=== PATIENT | female | born 1955 | race Caucasian/White ===

== ENCOUNTER 2019-05-19 10:19 | Observation (INO) | payer OTHER ==
[2019-05-19 11:04] LABS: ANION GAP 16.8 mmol/L (5-15); CHLORIDE,CL 99 mmol/L (98-115); SODIUM,NA 138 mmol/L (136-145)
[2019-05-19] MEDS ORDERED: Sodium Chloride 0.9% 10 ML Syringe FLUSH PRN (11:48)
[2019-05-19] MEDS ORDERED: Sodium Chloride 0.9% 1,000 ML IV SCH (12:00)
[2019-05-19] MEDS ORDERED: Ondansetron 4 MG/2 ML SDV IVPUSH PRN (12:00)
[2019-05-19] MEDS: Sodium Chloride 0.9% 1,000 ML IV SCH ×2 (13:08→20:02)
[2019-05-19] MEDS: Oseltamivir 75 MG Cap PO SCH ×2 (13:35→20:32)
[2019-05-19] MEDS ORDERED: Acetaminophen 325 MG Tab PO PRN (15:49)
[2019-05-19] MEDS ORDERED: Cyclobenzaprine 5 MG Tab PO PRN (15:54)
[2019-05-19] MEDS ORDERED: ESTROGENS CONJUGATED TOP SCH (16:00)
[2019-05-19] MEDS ORDERED: Ibuprofen 200 MG Tab PO PRN (16:12)
[2019-05-19] MEDS ORDERED: Loratadine 10 MG Tab PO PRN (16:30)
[2019-05-19] MEDS: Docusate Sodium 100 MG Cap PO SCH (16:57)
[2019-05-19] MEDS: Gabapentin 300 MG Cap PO SCH ×2 (17:12→20:31)
[2019-05-19] MEDS ORDERED: Simvastatin 20 MG Tab PO SCH (21:00)
[2019-05-19] MEDS ORDERED: Melatonin 3 MG Tab PO SCH (21:00)
[2019-05-19] MEDS ORDERED: Gabapentin 300 MG Cap PO SCH (21:00)
[2019-05-19] MEDS ORDERED: Docusate Sodium 100 MG Cap PO SCH (21:00)
[2019-05-19] MEDS ORDERED: Psyllium Husk Powder Sugar Free 5.85 GM Packet PO SCH (21:00)
[2019-05-19] MEDS: Clobetasol 0.05% Crm 30 GM Tube TOP SCH (23:13)
[2019-05-19] MEDS ORDERED: EYE OP ONE (23:15)
[2019-05-19] MEDS ORDERED: SYSTANE OP ONE (23:15)
[2019-05-20] MEDS: Sodium Chloride 0.9% 1,000 ML IV SCH ×2 (02:46→10:57)
[2019-05-20 06:23] VITALS: BP 121/57; PULSE 53
[2019-05-20] MEDS: Gabapentin 300 MG Cap PO SCH ×2 (07:49→12:46)
[2019-05-20] MEDS: Docusate Sodium 100 MG Cap PO SCH ×2 (07:49→12:46)
[2019-05-20] MEDS ORDERED: EYE OP SCH (09:00)
[2019-05-20] MEDS ORDERED: Multivitamins with Minerals/Iron/Folic Acid/Lycopene Tab PO SCH (09:00)
[2019-05-20] MEDS ORDERED: Cholecalciferol (Vitamin D3) 25 MCG Tab PO SCH (09:00)
[2019-05-20] MEDS ORDERED: SYSTANE OP SCH (09:00)
[2019-05-20] MEDS ORDERED: Sertraline 50 MG Tab PO SCH (09:00)
[2019-05-20] MEDS: Oseltamivir 75 MG Cap PO SCH (09:21)
[2019-05-20] MEDS: Clobetasol 0.05% Crm 30 GM Tube TOP SCH (09:25)
--- NOTE | 2019-05-20 10:25 | PCM.DCSUM1 ---
Discharge Summary - Hospital Course Free Text/Narrative:: Admission Date: 05/19/2019 Discharge Date: 05/20/2019 Admission Diagnoses: Influenza A Weakness secondary to above Dehydration secondary to above Discharge Diagnoses: Influenza A, treated with Tamiflu Weakness, improving Dehydration, improving with IVF's able to take PO Secondary, Chronic diagnoses: Fibromyalgia Depression Hyperlipidemia Peripheral neuropathy Occasional insomnia Atrophic vaginitis Disposition: Home, self care CODE STATUS: Full Code New meds at discharge: Tamiflu 75 mg PO BID to complete 5 day course Linsey is being discharged today from an observation stay for weakness and dehydration secondary to influenza. She was initially seen in the clinic on 01/2020 with a one month history of cough and weakness that would "come and go" . She was afebrile. When she would be sick it would las 2-3 days and then resolve completely. No N/V/D. She had a cough that she felt was "deep in her chest" and she was frustrated with the waxing and waning nature of this and so presented for evaluation. She was afebrile in clinic with normal vital signs, she was not ill appearing. She was treated with a Z-pack and instructed to follow-up if worsening. She was seen in clinic on 05/19/2019 with significant weakness, inability to eat or drink due to weakness and lack of motivation to get due to this overwhelming fatigue. She notes she had a temp of 101.7 on . Her had similar symptoms but was improving. In clinic she was tested for influenza and was positive for influenza A. She was admitted due to this and it's associated weakness and dehydration. Labs were all stable, slightly low WBC which is chronic for her. She was given 1L IVF bolus followed by NS at 100 cc per hour. She was started on Tamiflu 75 mg PO BID to complete a 5 day course. Overnight she has been able to ambulate independently to the bathroom and has been tolerating PO intake of food and fluids. She was not sleeping well last night due the noise of the IV pump running. She feels overall improved and is ready to go home. She will be discharged to home. Follow-in clinic as regularly scheduled. Follow-up sooner if no improvement in symptoms. Diagnosis: Stroke: No Modified Travis Scale: No Signif.Disability Despite Sympt.Able to Carry Out Usual Act./Duties Modified Winthrop Scale Score: 1 - Discharge Data Discharge Date: 05/20/19 Discharge Disposition: Home, Self-Care 01 Condition: Good - Referral to Home Health Primary Care Physician: Shyanne Bowling PA-C - Patient Instructions Diet: Regular Diet as Tolerated Activity: Rest and Relax Today - Discharge Plan *PRESCRIPTION DRUG MONITORING PROGRAM REVIEWED*: Not Applicable *COPY OF PRESCRIPTION DRUG MONITORING REPORT IN PATIENT SHAHRZAD: Not Applicable Prescriptions/Med Rec: Oseltamivir [Tamiflu] 75 mg PO BID 5 Days cap Home Medications: Home Meds Gabapentin 600 mg PO QID 06/26/13 [History] Multivitamin [Multi-Vitamin Daily] 1 tab PO DAILY 06/26/13 [History] Sertraline HCl 100 mg PO QAM 06/26/13 [History] Simvastatin 20 mg PO Q2D 06/26/13 [History] Cholecalciferol (Vitamin D3) [Vitamin D3] 2,000 unit PO QAM 05/19/19 [History] Clobetasol [Clobetasol 0.05%] 30 gm TOP BID 05/19/19 [History] Cyclobenzaprine HCl 2.5 mg PO TID PRN 05/19/19 [History] Docusate Sodium [Colace] 100 mg PO TID 05/19/19 [History] Estrogens, Conjugated [Premarin Vaginal Crm] 1 applic TOP ASDIRECTED 05/19/19 [ History] Gabapentin [Neurontin] 300 mg PO BEDTIME 05/19/19 [History] Ibuprofen [Advil] 200 mg PO Q6H PRN 05/19/19 [History] Loratadine [Claritin] 10 mg PO DAILY PRN 05/19/19 [History] Melatonin 10 mg PO BEDTIME 05/19/19 [History] Naproxen Sodium [Aleve] 220 mg PO BID PRN 05/19/19 [History] Polyethylene Glycol 3350 [Miralax] 17 gm PO Q2D 05/19/19 [History] Propylene Glycol/PEG 400/Pf [Systane 0.3-0.4% Eye Drop] 1 each OP DAILY [History] Psyllium Husk/Aspartame [Metamucil Sugar Free] 1 packet PO Q2D 05/19/19 [History ] Oseltamivir [Tamiflu] 75 mg PO BID 5 Days cap 05/20/19 [Rx] - Discharge Summary/Plan Comment DC Time >30 min.: No - General Info Date of Service: 05/20/19 Admission Dx/Problem (Free Text: Influenza A Dehydration Weakness - Patient Data Vitals - Most Recent: Last Vital Signs Temp 97.1 F 05/20/19 06:22 Pulse 53 L 05/20/19 06:22 Resp 18 05/20/19 06:22 BP 121/57 L 05/20/19 06:22 Pulse Ox 93 L 05/20/19 06:22 Weight - Most Recent: 154 lb 12.8 oz I&O - Last 24 hours: Intake & Output 05/19/19 05/20/19 05/20/19 22:59 06:59 14:59 Intake Total 700 4484 Output Total 1900 2700 Balance -1200 1784 Lab Results - Last 24 hrs: Laboratory Results - last 24 hr 05/19/19 05/19/19 Range/Units 10:38 10:38 WBC 3.45 L (5.00-10.00) 10^3/uL RBC 4.88 (3.80-5.50) 10^6/uL Hgb 14.7 (12.0-16.0) g/dL Hct 43.9 (37.0-47.0) % MCV 90.0 (82.0-92.0) fL MCH 30.1 (27.0-31.0) pg MCHC 33.5 (32.0-36.0) g/dL RDW 12.4 (11.5-14.5) % Plt Count 198 (150-400) 10^3/uL MPV 9.2 (7.4-10.4) fL Immature Gran % (Auto) 0.0 (0.0-5.0) % Neut % (Auto) 54.5 (50.0-70.0) % Lymph % (Auto) 37.1 (20.0-40.0) % Calvert % (Auto) 6.4 (2.0-8.0) % Eos % (Auto) 1.7 (1.0-3.0) % Baso % (Auto) 0.3 (0.0-1.0) % Immature Gran # (Auto) 0.00 (0.00-0.50) 10^3/uL Neut # (Auto) 1.88 L (2.50-7.00) 10^3/uL Lymph # (Auto) 1.28 (1.00-4.00) 10^3/uL Calvert # (Auto) 0.22 (0.10-0.80) 10^3/uL Eos # (Auto) 0.06 L (0.10-0.30) 10^3/uL Baso # (Auto) 0.01 (0.00-0.10) 10^3/uL Sodium 138 (136-145) mmol/L Potassium 4.2 (3.3-5.3) mmol/L Chloride 99 (98-115) mmol/L Carbon Dioxide 26.4 (21.0-32.0) mmol/L Anion Gap 16.8 H (5-15) mmol/L BUN 15 (6-25) mg/dL Creatinine 0.71 (0.51-1.17) mg/dL Est Cr Clr Drug Dosing TNP Estimated GFR (MDRD) > 60 mL/min Glucose 95 (75 - 99) mg/dL Calcium 8.9 (8.7-10.3) mg/dL Total Bilirubin 0.3 (0.2-1.0) mg/dL AST 36 (15-37) U/L ALT 43 (12-78) U/L Alkaline Phosphatase 100 (46-116) IU/L Total Protein 7.1 (6.4-8.2) g/dL Albumin 3.98 (3.00-4.80) g/dL ELVIS Results - Last 24 hrs: Microbiology 05/19/19 10:19 Influenza Type A Antigen Screen - Final Nasopharyngeal Swab Positive Influenza A Ag Influenza Type B Antigen Screen - Final NEGATIVE INFLUENZA B VIRUS AG REFERENCE RANGE: NEGATIVE Med Orders - Current: Current Medications Acetaminophen (Tylenol) 650 mg PO Q6H PRN PRN Reason: 650 Cholecalciferol (Vitamin D3) 50 mcg PO DAILY [facility] Last Admin: 05/20/19 09:22 Dose: 50 mcg Clobetasol Propionate (Clobetasol 0.05%) 0 gm TOP BID [facility] Last Admin: 05/20/19 09:25 Dose: Not Given Cyclobenzaprine HCl (Flexeril) 2.5 mg PO TID PRN PRN Reason: muscle spasms Last Admin: 05/19/19 19:22 Dose: 2.5 mg Docusate Sodium (Colace) 100 mg PO TID@0730,1200,1600 [facility] Last Admin: 05/20/19 07:49 Dose: 100 mg Gabapentin (Neurontin) 600 mg PO BID@0730,1200 [facility] Last Admin: 05/20/19 07:49 Dose: 600 mg Gabapentin (Neurontin) 300 mg PO BEDTIME [facility] Last Admin: 05/19/19 20:32 Dose: 300 mg Gabapentin (Neurontin) 600 mg PO BID@1630,2100 [facility] Last Admin: 05/19/19 20:31 Dose: 600 mg Sodium Chloride (Normal Saline) 1,000 mls @ 999 mls/hr IV .BOLUS [facility] Last Admin: 05/19/19 12:03 Dose: 999 mls/hr Sodium Chloride (Normal Saline) 1,000 mls @ 150 mls/hr IV ASDIRECTED [facility] Last Admin: 05/20/19 02:46 Dose: 150 mls/hr Ibuprofen (Motrin) 200 mg PO Q6H PRN PRN Reason: PAIN Loratadine (Claritin) 10 mg PO DAILY PRN PRN Reason: ALLERGIES Melatonin (Melatonin) 9 mg PO BEDTIME [facility] Last Admin: 05/19/19 20:32 Dose: 9 mg Multivitamins/Minerals (Centrum) 1 tab PO DAILY [facility] Last Admin: 05/20/19 09:26 Dose: 1 tab Naproxen (Naproxen Sodium) 220 mg PO BID PRN PRN Reason: Pain Systane 0.3-0.4% Eye (Drops Own Med) 0 each OP DAILY [facility] Last Admin: 05/20/19 09:24 Dose: 1 each Ondansetron HCl (Zofran) 4 mg IVPUSH Q4H PRN PRN Reason: Nausea/Vomiting Oseltamivir Phosphate (Tamiflu) 75 mg PO BID [facility] Stop: 05/23/19 22:30 Last Admin: 05/20/19 09:21 Dose: 75 mg Polyethylene Glycol (Miralax) 17 gm PO Q2D@2100 [facility] Psyllium Husk (Metamucil Sugar Free) 1 pkt PO Q2D@2100 [facility] Last Admin: 05/19/19 20:31 Dose: 1 pkt Sertraline HCl (Zoloft) 100 mg PO QAM [facility] Last Admin: 05/20/19 09:21 Dose: 100 mg Simvastatin (Zocor) 20 mg PO Q2D@2100 [facility] Last Admin: 05/19/19 20:32 Dose: 20 mg Sodium Chloride (Saline Flush) 10 ml FLUSH Q8HR PRN PRN Reason: keep vein open Discontinued Medications Docusate Sodium (Colace) 100 mg PO TID [facility] Non-Formulary Medication (Estrogens, Conjugated) 1 applic TOP ASDIRECTED [facility] Systane 0.3-0.4% Eye (Drops Own Med) 0 each OP ONETIME ONE Stop: 05/19/19 23:16 Last Admin: 05/20/19 00:06 Dose: 1 each - Exam General: Reports: Alert, Oriented, Cooperative, No Acute Distress Lungs: Reports: Clear to Auscultation, Normal Respiratory Effort Cardiovascular: Reports: Regular Rate, Regular Rhythm, No Murmurs
[2019-05-20] MEDS ORDERED: Polyethylene Glycol 3350 Powder 17 GM Packet PO SCH (21:00)
== END 2019-05-20 13:00 | disposition home or self-care (01) ==
LOC: KA.OC 10:19 → KA.MS 11:25
DX: J10.1 Influenza due to other identified influenza virus with other respiratory manifestations (principal); E86.0 Dehydration; E78.5 Hyperlipidemia, unspecified; F32.9 Major depressive disorder, single episode, unspecified; G62.9 Polyneuropathy, unspecified; M79.7 Fibromyalgia; N95.2 Postmenopausal atrophic vaginitis; F41.9 Anxiety disorder, unspecified; G47.00 Insomnia, unspecified; K59.09 Other constipation; E78.00 Pure hypercholesterolemia, unspecified; Z79.899 Other long term (current) drug therapy; Z88.1 Allergy status to other antibiotic agents; Z91.048 Other nonmedicinal substance allergy status; Z88.8 Allergy status to other drugs, medicaments and biological substances
CPT/HCPCS: 36415; 80053; 85025; 87804; 96360; 96361; A9270-GY; G0378; J7030; J7040

== ENCOUNTER 2019-12-19 07:48 | Day surgery (SDC) | payer MEDICARE, BC ==
[2019-12-19] MEDS ORDERED: Midazolam 1 MG/ML 2 ML SDV IV ONE (07:49)
[2019-12-19] MEDS ORDERED: Propofol 200 MG/20 ML SDV IV ONE (07:49)
[2019-12-19] MEDS ORDERED: Lactated Ringers 1,000 ML IV SCH (08:00)
[2019-12-19] MEDS ORDERED: Sodium Chloride 0.9% 10 ML Syringe FLUSH PRN (08:00)
[2019-12-19] MEDS ORDERED: Propofol 200 MG/20 ML SDV ONE ×2 (08:08→08:46)
[2019-12-19] MEDS ORDERED: Midazolam 1 MG/ML 2 ML SDV ONE (08:08)
--- NOTE | 2019-12-19 09:15 | PCM.PN ---
- General Info Date of Service: 12/19/19 - Review of Systems Systems Review Comment:: 64-year-old female with history of recent removal of large polyp here for follow-up colonoscopy. Patient does require medication assistance for regular bowel movements but notes no recent bleeding or major change in bowel function. She is medically stable to proceed today. Her recent history and physical is reviewed and no significant changes are noted. She agrees to proceed excepting risks. - Patient Data Vitals - Most Recent: Last Vital Signs Temp 96.9 F 12/19/19 08:01 Pulse 76 12/19/19 08:01 Resp 16 12/19/19 08:01 BP 154/78 H 12/19/19 08:01 Pulse Ox 96 12/19/19 08:01 Weight - Most Recent: 69.4 kg Med Orders - Current: Current Medications Lactated Ringer's (Ringers, Lactated) 1,000 mls @ 30 mls/hr IV ASDIRECTED [facility] Last Admin: 12/19/19 08:12 Dose: 30 mls/hr Documented by: Sodium Chloride (Saline Flush) 10 ml FLUSH Q8HR PRN PRN Reason: keep vein open Discontinued Medications Midazolam HCl (Versed 1 Mg/Ml) Confirm Administered Dose 2 mg .ROUTE .STK-MED ONE Stop: 12/19/19 08:09 Propofol (Diprivan 20 Ml) Confirm Administered Dose 400 mg .ROUTE .STK-MED ONE Stop: 12/19/19 08:09 Sepsis Event Note - Focused Exam Vital Signs: Vital Signs Temp Pulse Resp BP Pulse Ox 12/19/19 08:01 96.9 F 76 16 154/78 H 96 - Problem List Review Problem List Initiated/Reviewed/Updated: Yes - My Orders Last 24 Hours: My Active Orders 12/18/19 11:51 Resuscitation Status Routine 12/19/19 08:00 Patient to Empty Bladder [RC] ASDIRECTED Peripheral IV Care [RC] . DIRECTED Verify Patient Consent Obtain [RC] ASDIRECTED Vital Signs [RC] PER UNIT ROUTINE Nothing Per Oral Diet [DIET] Lactated Ringers [Ringers, Lactated] 1,000 ml IV ASDIRECTED Sodium Chloride 0.9% [Saline Flush] 10 ml FLUSH Q8HR PRN Peripheral IV Insertion Adult [OM.PC] Routine - Assessment Assessment:: History of colon polyps - Plan Plan:: Colonoscopy
--- NOTE | 2019-12-19 10:18 | PCM.OPNOTE ---
- General Post-Op/Procedure Note Date of Surgery/Procedure: 12/19/19 Operative Procedure(s): Colonoscopy with polypectomy Findings: 3 Small colon polyps Previously removed large polyp appears to be completely gone Mild Sigmoid Diverticulosis Pre Op Diagnosis: History of colon polyps Post-Op Diagnosis: Colon Polyps. Sigmoid Diverticulosis Anesthesia Technique: MAC Primary Surgeon: Chintan Banks Pathology: Colon Polyps EBL in mLs: 0 Complications: None Condition: Good
[2019-12-19 11:31] VITALS: BP 122/79; PULSE 63
--- NOTE | 2019-12-19 13:18 | OR ---
DATE OF SURGERY: 12/19/2019 SURGEON: Chintan Banks MD PREOPERATIVE DIAGNOSIS: History of colon polyps. POSTOPERATIVE DIAGNOSIS: Colon polyps, sigmoid diverticulosis. OPERATION PERFORMED: Colonoscopy with polypectomy. INDICATIONS FOR SURGERY: This 64-year-old female has a known history of colon polyps including a large cecal polyp which was removed by advanced polypectomy techniques in June of this year. The patient comes today for surveillance colonoscopy. FINDINGS: The large polyp in the cecum appears to have been completely removed as there is no evidence of any residual polyp in this area. There are three other small polyps that were noted. All of these are sessile in configuration. There is a 7 mm polyp in the distal transverse colon, a 6 mm polyp at the splenic flexure and a 3 mm polyp in the cecum. There is also a mild amount of diverticulosis in the sigmoid colon, which does not appear to be acutely inflamed or otherwise complicated. The patient did have significant spasm of the colon, but otherwise appeared normal. DESCRIPTION OF PROCEDURE: The patient was taken to the operating room. She was given intravenous sedation and with her in the left lateral decubitus position, digital rectal exam was performed showing no rectal masses. The Olympus colonoscope was inserted into the rectum. Retroflexed examination of the rectal canal is performed. The scope was then carefully advanced under direct visualization. The scope was advanced to the splenic flexure where the above- described polyp is identified. This was removed with a cautery snare and retrieved. The scope was then advanced to the cecum. This was difficult because of spasm of the colon and some colon tortuosity, but eventually with hand pressure and placing the patient in the supine position, the cecum is able to be accessed and cannulated. The normal internal cecal anatomy including the appendiceal orifice and ileocecal valve reviewed. The light is noted to transilluminate the abdominal wall in the right lower quadrant. In the cecum, the above-described very small polyp was noted. This is destroyed with the cautery snare. After the cecum had been completely examined, the scope was slowly withdrawn sequentially re-examining the colonic segments. In the distal transverse colon, the other above-described polyp was identified during withdrawal of the scope. It was removed with a cautery snare and retrieved. The examination was then completed and with no sign of any complication, the scope was removed. The patient is taken from the operating room in satisfactory condition. ESTIMATED BLOOD LOSS: Zero. COMPLICATIONS: None. PROGNOSIS: Good. /[id number]/MODL MTDD
== END 2019-12-19 11:20 | disposition home or self-care (01) ==
LOC: KA.SDS 07:48
PROVIDERS: ATTEND Surgery
DX: D12.3 Benign neoplasm of transverse colon (principal); K57.30 Diverticulosis of large intestine without perforation or abscess without bleeding; M19.90 Unspecified osteoarthritis, unspecified site; G89.29 Other chronic pain; M67.40 Ganglion, unspecified site; K58.8 Other irritable bowel syndrome; G47.33 Obstructive sleep apnea (adult) (pediatric); L82.1 Other seborrheic keratosis; Z88.1 Allergy status to other antibiotic agents; Z88.8 Allergy status to other drugs, medicaments and biological substances; Z86.010 Personal history of colon polyps
CPT/HCPCS: 00811; J2250; J2704; J7120

== ENCOUNTER 2022-05-19 08:47 | Day surgery (SDC) | payer MEDICARE, BC ==
[2022-05-19] MEDS ORDERED: Sodium Chloride 0.9% 10 ML Syringe FLUSH PRN (09:00)
[2022-05-19] MEDS ORDERED: Lactated Ringers 1,000 ML IV SCH (09:00)
[2022-05-19] MEDS ORDERED: Midazolam 1 MG/ML 2 ML SDV ONE (09:26)
[2022-05-19] MEDS ORDERED: Propofol 200 MG/20 ML SDV ONE (09:26)
[2022-05-19 11:34] VITALS: BP 129/73; PULSE 67
== END 2022-05-19 11:40 | disposition home or self-care (01) ==
LOC: KA.SDS 08:47
PROVIDERS: ATTEND Surgery
DX: Z12.11 Encounter for screening for malignant neoplasm of colon (principal); K57.30 Diverticulosis of large intestine without perforation or abscess without bleeding; F41.9 Anxiety disorder, unspecified; K21.9 Gastro-esophageal reflux disease without esophagitis; M79.7 Fibromyalgia; M19.90 Unspecified osteoarthritis, unspecified site; E78.5 Hyperlipidemia, unspecified; E78.1 Pure hyperglyceridemia; F33.9 Major depressive disorder, recurrent, unspecified; G62.9 Polyneuropathy, unspecified; G47.33 Obstructive sleep apnea (adult) (pediatric); E55.9 Vitamin D deficiency, unspecified; Z86.010 Personal history of colon polyps; Z88.1 Allergy status to other antibiotic agents; Z91.048 Other nonmedicinal substance allergy status; Z88.8 Allergy status to other drugs, medicaments and biological substances; Z79.899 Other long term (current) drug therapy; Z98.890 Other specified postprocedural states
CPT/HCPCS: 00812; J2250; J2704; J7120

== ENCOUNTER 2023-06-02 09:18 | Emergency (ER) | payer MEDICARE, BC ==
[2023-06-02] MEDS ORDERED: Sodium Chloride 0.9% 10 ML Syringe FLUSH PRN (09:37)
[2023-06-02] MEDS ORDERED: Naloxone 0.4 MG/ML SDV IVPUSH PRN (09:38)
[2023-06-02 09:52] LABS: BASOPHILS ABSOLUTE AUTO 0.03 10^3/uL (0.00-0.10); BASOPHILS PERCENT AUTO 0.6 % (0.0-1.0); HEMATOCRIT 44.7 % (37.0-47.0); HEMOGLOBIN 14.6 g/dL (12.0-16.0); LYMPHOCYTES ABSOLUTE AUTO 1.71 10^3/uL (1.00-4.00); LYMPHOCYTES PERCENT AUTO 34.6 % (20.0-40.0); MEAN CORPUSCULAR HEMOGLOBIN 29.1 pg (27.0-31.0); MEAN CORPUSCULAR HGB CONC 32.7 g/dL (32.0-36.0); MEAN PLATELET VOLUME 9.2 fL (7.4-10.4); MONOCYTES ABSOLUTE AUTO 0.43 10^3/uL (0.10-0.80); MONOCYTES PERCENT AUTO 8.7 % (2.0-8.0); NEUTROPHILS ABSOLUTE AUTO 2.67 10^3/uL (2.50-7.00); NEUTROPHILS PERCENT AUTO 54.1 % (50.0-70.0); PLATELET COUNT,PLT 193 10^3/uL (150-400); RED BLOOD CELL COUNT 5.02 10^6/uL (3.80-5.50); RED CELL DISTRIBUTION WIDTH 12.7 % (11.5-14.5); WHITE BLOOD CELL COUNT,WBC 4.94 10^3/uL (5.00-10.00)
[2023-06-02 10:11] LABS: APPEARANCE,URINE CLEAR (CLEAR); BILIRUBIN,URINE NEGATIVE (NEGATIVE); COLOR,URINE YELLOW (YELLOW); GLUCOSE,URINE NEGATIVE (NEGATIVE); KETONES,URINE NEGATIVE (NEGATIVE); LEUKOCYTE ESTERASE,URINE TRACE (NEGATIVE); NITRITE,URINE NEGATIVE (NEGATIVE); OCCULT BLOOD,URINE NEGATIVE (NEGATIVE); PROTEIN,URINE NEGATIVE (NEGATIVE)
[2023-06-02] MEDS: Sodium Chloride 0.9% 1,000 ML IV ONE (10:11)
[2023-06-02] MEDS: HYDROmorphone 1 MG/ML Syringe IVPUSH ONE (10:13)
[2023-06-02] MEDS: Ondansetron 4 MG/2 ML SDV IVPUSH ONE (10:13)
[2023-06-02 10:14] LABS: ALBUMIN 4.26 g/dL (3.40-5.00); ANION GAP 13.1 mmol/L (5-15); CALCIUM 9.4 mg/dL (8.7-10.3); CARBON DIOXIDE,CO2 30.2 mmol/L (21.0-32.0); CREATININE 0.87 mg/dL (0.51-1.17); EST CRCL DRUG DOSING (CG) 62.43 mL/min; POTASSIUM,K 4.3 mmol/L (3.5-5.1); PROTEIN TOTAL,TP 7.2 g/dL (6.4-8.2)
[2023-06-02 10:15] LABS: BILIRUBIN TOTAL 0.5 mg/dL (0.2-1.0)
[2023-06-02 10:23] LABS: BACTERIA,URINE RARE /HPF (NONE TO FEW); EPITHELIAL CELLS,URINE RARE /LPF; MUCUS,URINE RARE /LPF (NEGATIVE); RBC,URINE 0-5 /HPF (0-5); WBC,URINE 0-5 /HPF (0-5)
[2023-06-02] MEDS: Iopamidol 755 Mg/ML 100 ML Bottle IV ONE (11:00)
[2023-06-02] MEDS: Sodium Chloride 0.9% 50 ML IV SCH (11:01)
[2023-06-02 11:23] VITALS: BP 134/69; PULSE 75
== END 2023-06-02 12:20 | disposition home or self-care (01) ==
LOC: KA.ED 09:18
DX: K64.4 Residual hemorrhoidal skin tags (principal); K59.04 Chronic idiopathic constipation
CPT/HCPCS: 74177; 80053; 81001; 82150; 82270; 83690; 85025; 87086; 96360; 99284; 99284-25; J3490; J7030; Q9967

== ENCOUNTER 2024-10-18 22:05 | Emergency (ER) | payer MEDICARE, BC ==
[2024-10-18 22:38] LABS: BASOPHILS ABSOLUTE AUTO 0.04 10^3/uL (0.00-0.10); BASOPHILS PERCENT AUTO 0.8 % (0.0-1.0); EOSINOPHILS ABSOLUTE AUTO 0.16 10^3/uL (0.10-0.30); EOSINOPHILS PERCENT AUTO 3.0 % (1.0-3.0); IMMATURE GRAN ABSOLUTE AUTO 0.01 10^3/uL (0.00-0.04); IMMATURE GRAN PERCENT AUTO 0.2 % (0.0-0.4); LYMPHOCYTES ABSOLUTE AUTO 1.92 10^3/uL (1.00-4.00); LYMPHOCYTES PERCENT AUTO 36.6 % (20.0-40.0); MEAN PLATELET VOLUME 9.4 fL (7.4-10.4); MONOCYTES ABSOLUTE AUTO 0.50 10^3/uL (0.10-0.80); MONOCYTES PERCENT AUTO 9.5 % (2.0-8.0); NEUTROPHILS ABSOLUTE AUTO 2.62 10^3/uL (2.50-7.00); NEUTROPHILS PERCENT AUTO 49.9 % (50.0-70.0); PLATELET COUNT,PLT 209 10^3/uL (150-400); RED BLOOD CELL COUNT 4.89 10^6/uL (3.80-5.50); RED CELL DISTRIBUTION WIDTH 12.1 % (11.5-14.5); WHITE BLOOD CELL COUNT,WBC 5.25 10^3/uL (5.00-10.00)
[2024-10-18 22:56] LABS: ALANINE AMINOTRANSFERASE,ALT 40 U/L (14-63); ASPARTATE AMNIOTRANSFERASE,AST 29 U/L (15-37); BILIRUBIN TOTAL 0.3 mg/dL (0.2-1.0); BLOOD UREA NITROGEN,BUN 18 mg/dL (7-18); CARBON DIOXIDE,CO2 29.0 mmol/L (21.0-32.0); CHLORIDE,CL 101 mmol/L (98-107); CREATININE 0.80 mg/dL (0.51-1.17); GLUCOSE RANDOM 88 mg/dL (70-140); POTASSIUM,K 4.0 mmol/L (3.5-5.1); PROTEIN TOTAL,TP 7.5 g/dL (6.4-8.2); SODIUM,NA 141 mmol/L (136-145)
[2024-10-18 22:57] LABS: ESTIMATED GFR 80 mL/min (>=60)
[2024-10-19 01:11] VITALS: BP 142/77; PULSE 69
== END 2024-10-19 00:19 | disposition home or self-care (01) ==
LOC: KA.ED 22:05
DX: R42 Dizziness and giddiness (principal); R00.2 Palpitations; E78.00 Pure hypercholesterolemia, unspecified; Z88.1 Allergy status to other antibiotic agents; Z88.8 Allergy status to other drugs, medicaments and biological substances; Z79.82 Long term (current) use of aspirin; Z79.899 Other long term (current) drug therapy; Z90.49 Acquired absence of other specified parts of digestive tract; Z90.710 Acquired absence of both cervix and uterus
CPT/HCPCS: 36415; 80053; 84484; 85025; 99285